=== PATIENT | female | born 1965 | race Caucasian/White ===

== ENCOUNTER 2017-01-06 05:32 | Observation (INO) | payer BC ==
[~2017-01-06] VITALS: Ht 170.2 cm; Wt 79.5 kg
[~2017-01-06 05:32] MED LIST: TOPI1TAB97 PO
[2017-01-06] MEDS ORDERED: HEPARIN SODIUM - SQ 10,000 UNITS/ML VIAL SQ SCH (06:00)
[2017-01-06] MEDS ORDERED: POVIDONE IODINE 5% (ANTISEPSIS KIT) 4 APPLICATIONS EACH NARE PRN (06:00)
[2017-01-06] MEDS ORDERED: SODIUM CHLORID 0.9% 500 ML IV PRN (06:00)
[2017-01-06] MEDS ORDERED: INSULIN HUMAN REGULAR 1,000 UNITS/10 ML VIAL SQ PRN (06:00)
[2017-01-06] MEDS ORDERED: LACTATED RINGER'S 1000 ML IV PRN (06:00)
[2017-01-06] MEDS ORDERED: ceFAZolin 1,000 MG/NS 100 ML IV SCH ×2 (06:00)
[2017-01-06] MEDS ORDERED: METOPROLOL TARTRATE 25 MG TAB PO PRN (06:00)
[2017-01-06] MEDS ORDERED: CHLORHEXIDINE GLUCONATE 2 % 1 PACK (2 CLOTHS) TOPICAL PRN (06:00)
[2017-01-06] MEDS ORDERED: HYDROmorphone HCL PF 2 MG/ML VIAL ONE (06:42)
[2017-01-06] MEDS ORDERED: ACETAMINOPHEN 1000 MG/100 ML 100 ML IV ONE (06:42)
[2017-01-06] MEDS ORDERED: FAMOTIDINE 20 MG/2 ML VIAL ONE (06:43)
[2017-01-06] MEDS ORDERED: SUGAMMADEX SODIUM 200 MG/2 ML VIAL IV PUSH ONE ×2 (06:43)
[2017-01-06] MEDS ORDERED: ARTIFICIAL TEARS OPTH OINT 3.5 APPLIC/3.5 GM TUBO ONE (06:43)
[2017-01-06] MEDS ORDERED: LIDOCAINE 1%/EPINEPHrine 1:100,000 SOLN 50 ML VIAL ONE (06:51)
[2017-01-06] MEDS ORDERED: ONDANSETRON HCL 4 MG/2 ML VIAL IVP PRN (10:00)
[2017-01-06] MEDS ORDERED: SODIUM CHLORIDE 0.9% FLUSH 10 ML FLUSH IV FLUSH PRN (10:00)
[2017-01-06] MEDS ORDERED: LORazepam 0.5 MG TAB PO PRN (10:00)
[2017-01-06] MEDS ORDERED: oxyCODONE/ACETAMINOPHEN 5 MG/325 MG TAB PO PRN ×2 (10:00)
[2017-01-06] MEDS ORDERED: diphenhydrAMINE HCL 25 MG CAP PO PRN (10:00)
[2017-01-06] MEDS: D5-1/2 NS + KCL 20 MEQ INJ 1,000 ML IV SCH ×2 (10:30→21:52)
[2017-01-06] MEDS ORDERED: DO NOT ADM ANY ANTICOAGULANT DRUGS PRN (10:30)
--- NOTE | 2017-01-06 11:39 | MP ---
cc: CEDRICK OSBORNE M.D., KELLY L. MD DATE OF SURGERY 01/06/2017 PREOPERATIVE DIAGNOSES 1. Left adnexal mass. 2. Postmenopausal bleeding. 3. Family history of ovarian cancer. POSTOPERATIVE DIAGNOSES 1. Left adnexal mass. 2. Postmenopausal bleeding. 3. Family history of ovarian cancer. PROCEDURE Robotic-assisted laparoscopic hysterectomy, bilateral salpingo-oophorectomy. 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 ANESTHESIA General endotracheal anesthesia. ESTIMATED BLOOD LOSS 50 cc IV FLUIDS 1400 cc URINE OUTPUT 450 cc HISTORY A 51-year-old female found on exam and imaging to have prominent, slightly complex left adnexal mass. She has also had some intermittent postmenopausal bleeding. Her tumor markers were at the upper limit of normal or slightly elevated and she has a family history of ovarian cancer. For the aforementioned reasons she has been counseled and is strongly in favor of surgical evaluation and management and she is in favor of complete hysterectomy, bilateral salpingo-oophorectomy to evaluate the abnormalities, treat her symptoms and to exclude and/or prevent the possibility of malignancy. She was seen again in the preop holding area where the findings were again reviewed. Questions were answered and she is still in favor of moving forward with the surgical plan as outlined. FINDINGS The uterine cavity sounds to 6.5 cm, slightly retroverted. The cervix and uterus grossly appeared normal. The right tube and ovary appears normal. Left ovary is prominent, approximately 4 cm with a smooth-walled cyst, slight complex appearance. In the peritoneal cavity there is no enlarged pelvic or para-aortic lymph nodes. The peritoneal surfaces were normal. The liver diaphragm edges were smooth. The mesentery of large and small bowel were all without peritoneal implants. Once removed the left ovary preliminary pathology showed a benign-appearing cystic change. The uterus was opened and the endometrium appeared homogeneous without any overt neoplastic change. PROCEDURE She was taken to the operating room, placed in dorsal lithotomy position. After general endotracheal anesthesia was administered time-out was undertaken. She was identified by sight recognition and hospital ID bracelet and the proposed procedure was reviewed and confirmed. She was carefully positioned in padded Rick stirrups. Her arms were padded and secured to the sides. She was further affixed with eggcrate padding and tape in across-chest, [id number] fashion. All sites noted to be properly aligned with no malalignments or pressure points. She was prepped and draped in sterile fashion, placed in lithotomy position. The cervix was grasped. The uterine cavity was sounded, the cervix dilated and initially a standard V-Care was selected but, due to the narrow introitus and some mucosal irritation, this was changed to a small V-Care which was fashioned and secured in the usual fashion. Smith catheter was placed in the bladder. She was returned to low lithotomy position. Change of sterile gloves was undertaken. We confirmed that an orogastric tube was in the stomach on suction. With manual elevation of the abdominal wall and direct laparoscopic visualization, a 5-mm cannula was introduced into the left upper quadrant. Carbon dioxide gas was insufflated. A 12-mm cannula was placed in the midline above the umbilicus and 8-mm cannulas were placed in the right upper quadrant and left lateral quadrant and the original 5-mm exchanged for an 8-mm cannula. She was placed in Trendelenburg position. Peritoneal washings were obtained for cytology. The anatomy was surveyed with findings as described above. The small bowel was folded back on its mesenteric root and three Ray-Jimmy sponges were placed around the root of the small bowel mesentery. The robotic system was brought into the operative field and attached in the usual fashion. Monopolar scissors, fenestrated bipolar forceps and ProGrasp manipulators were placed in arms #1, 2 and 3 respectively, then I took my place at the surgeon's console. The right round ligament was isolated, cauterized and transected. The anterior and posterior leaves of the broad ligament were opened. The right ureter was identified. The right infundibulopelvic ligament was isolated. The intervening peritoneum was opened. The infundibulopelvic ligament was isolated to the level of the pelvic brim where it was cauterized and transected. Posterior peritoneum dissected along the right side of the uterus and cervix and the right vesicouterine peritoneum dissected off the lower uterine segment and cervix. Right uterine vessels were skeletonized, cauterized and transected as were the cardinal, paracervical and uterosacral ligaments. Attention was directed toward the left side. Minor adhesions were taken down to mobilize the colon. The left round ligament was isolated, cauterized, transected. The anterior and posterior leaves of the broad ligament were opened. The left ureter was identified, the left infundibulopelvic ligament was isolated. The intervening peritoneum was opened. The infundibulopelvic ligament was isolated to the level of the pelvic brim where it was cauterized and transected. The posterior peritoneum was opened along the left side of the uterus and cervix and the left vesicouterine peritoneum was dissected off the lower uterine segment and cervix. The left uterine vessels were skeletonized, cauterized and transected as were the cardinal, paracervical and uterosacral ligaments. Colpotomy was performed the cervix from the upper vagina and the specimen was withdrawn transvaginally which included uterus, cervix, tubes and ovaries and a pneumooccluder balloon was placed in the vagina to maintain pneumoperitoneum. Instruments #1 and 3 were exchanged for needle drivers as 0 Vicryl suture was introduced. The vaginal cuff was closed starting at the left corner where full-thickness closure including the posterior peritoneum and edge of the uterosacral ligament were secured and tied via instrument tie. The closure was held on countertraction as a running continuous full-thickness closure was carried across the vaginal apex to the contralateral corner where it was similarly affixed, secured, tied and the needle was cut and removed. The pelvis was thoroughly irrigated. Small bleeders were rendered hemostatic with bipolar cautery. The integrity of the bladder was checked by visual inspection, the bladder wall intact. There was a good margin between the edge of the bladder and the vaginal cuff suture line, good peristalsis of ureters bilaterally, good hemostasis. Frozen section came back showing benign findings as described above. Therefore it was felt that all reasonable surgical objectives had been completed so the robotic instruments were removed. The robotic system was disengaged from the operative field and I reentered the bedside under sterile condition. Each of the three Ray-Jimmy sponges were removed through the 12-mm cannula. Each were inspected and noted to be removed in their entirety. Visual inspection confirmed no remaining foreign objects in the peritoneal cavity. Preliminary counts were correct. The 12-mm fascial defect was closed with 0 Vicryl suture using a needle pass apparatus. The sutures were tied securely which rendered the fascia completely airtight and hemostatic. The remaining cannulas were withdrawn. Carbon dioxide gas was removed. 3-0 Vicryl subcutaneous, 3-0 Vicryl subcuticular and Steri-Strips used to close these incisions. She was returned to dorsal lithotomy position. Pelvic exam confirmed the vaginal cuff was well-supported and hemostatic. There were no active bleeders but diffuse irritation to the mucosa with some mild oozing which was rendered hemostatic with 1 gram of Delmi hemostatic agent and silver nitrate at the introitus. There were no remaining foreign objects in the vagina. Final counts were correct. She was returned to dorsal supine position and was pending reversal of anesthesia when I left the operating room to precede her to the Post-Anesthesia Care Unit and to speak to family members who were waiting in the surgical waiting area. MD ODALYS Guillen/SSB /10:51 AM /11:08 AM
[2017-01-06 12:00] VITALS: BP 106/71; PULSE 68; RESP 18; TEMP 97.6; O2SAT 96
[2017-01-06 13:23] VITALS: BP 112/68; PULSE 79; RESP 18; TEMP 97.8; O2SAT 98
[2017-01-06] MEDS: HYDROmorphone HCL PF 1 MG/ML VIAL IVP PRN ×2 (13:32→21:51)
[2017-01-06] MEDS: KETOROLAC TROMETHAMINE 30 MG/ML (IVP) VIAL IVP SCH (15:12)
[2017-01-06 15:23] VITALS: BP 112/68; PULSE 79; RESP 18; TEMP 97.8; O2SAT 98
[2017-01-06 20:14] VITALS: BP 112/73; PULSE 79; RESP 18; TEMP 98.9; O2SAT 97
[2017-01-06] MEDS: SODIUM CHLORIDE 0.9% FLUSH 10 ML FLUSH IV FLUSH SCH (21:00)
[2017-01-07 00:32] VITALS: BP 99/65; PULSE 65; RESP 18; TEMP 98.9; O2SAT 95
[2017-01-07] MEDS: KETOROLAC TROMETHAMINE 30 MG/ML (IVP) VIAL IVP SCH ×3 (00:38→08:24)
[2017-01-07 05:12] VITALS: BP 117/66; PULSE 62; RESP 18; TEMP 98; O2SAT 98
[2017-01-07] MEDS ORDERED: OXYC1TAB63 PO (07:12)
[2017-01-07 07:58] LABS: AUTOMATED NEUTROPHIL # 8.8 TH/MM3 (1.8-7.7); BASOPHIL % 0.3 % (0.0-2.0); EOSINOPHIL % 0.2 % (0.0-4.0); HEMATOCRIT 36.2 % (35.0-46.0); HEMO FLAGS DIFF FINAL; LYMPH % 17.5 % (9.0-44.0); LYMPHOCYTE # 2.1 TH/MM3 (1.0-4.8); MEAN CELL VOLUME 93.6 FL (80.0-100.0); MEAN CORPUSCULAR HEMOGLOBIN 31.1 PG (27.0-34.0); MEAN CORPUSCULAR HGB CONC 33.2 % (32.0-36.0); MONO % 6.9 % (0.0-8.0); NEUT % 75.1 % (16.0-70.0); PLATELET COUNT 220 TH/MM3 (150-450); RED BLOOD COUNT 3.87 MIL/MM3 (4.00-5.30); RED CELL DISTRIBUTION WIDTH 12.2 % (11.6-17.2); WHITE BLOOD COUNT 11.8 TH/MM3 (4.0-11.0)
[2017-01-07 08:00] VITALS: BP 123/72; PULSE 77; RESP 16; TEMP 98.6; O2SAT 98
--- NOTE | 2017-01-07 08:03 | MD ---
cc: CEDRICK OSBORNE M.D., KELLY L. MD ADMISSION DATE: 01/06/2017 DISCHARGE DATE: 01/07/2017 [facility] Visit Search.Discharge Date PROCEDURE 01/06/2017: Robotic-assisted laparoscopic hysterectomy, bilateral salpingo-oophorectomy. DIAGNOSIS 1. Adnexal mass. 2. Postmenopausal bleeding. HOSPITAL COURSE She has done well in the early post-op period, hemodynamically stable. She is up walking around the cole this morning, Smith catheter removed, voiding okay, tolerating oral intake. In's and out's overnight 2940/3475. Labs pending at the time of this dictation. PHYSICAL EXAMINATION VITAL SIGNS: Today afebrile, pulse 62-79, respirations 18, blood pressure 99-117/65-73. O2 saturations greater than or equal to 95% while asleep, 98% while awake. GENERAL: She is alert and oriented x3, ambulating on the cole. LUNGS: Clear. CARDIOVASCULAR: Regular rate and rhythm. ABDOMEN: Incisions clean and dry. MANAGER BUSINESS MANAGEMENT: No bleeding. ASSESSMENT Post-op day #1, doing well in the early post-op period. Preliminary pathology and steps taken reviewed. Activities and restrictions discussed. Questions were answered. She expressed good understanding. PLAN Anticipate discharge to home today. She is to contact our office to schedule follow-up in 2 weeks. She is to resume her prior medications. She will have a prescription for Percocet for pain. She is to contact our office between now and the time of scheduled follow-up should she have any questions or problems. MD ODALYS Guillen/KRISTAL /7:13 AM /7:50 AM
[2017-01-07] MEDS: SODIUM CHLORIDE 0.9% FLUSH 10 ML FLUSH IV FLUSH SCH (08:24)
[2017-01-07 08:48] LABS: BICARBONATE 25.4 MEQ/L (21.0-32.0); POTASSIUM 3.4 MEQ/L (3.5-5.1)
[2017-01-07] MEDS ORDERED: TOPIRAMATE 25 MG TAB PO SCH (09:00)
== END 2017-01-07 09:34 | disposition home or self-care (01) ==
LOC: HSDC 05:32 → HSDI 09:58 → HCIS 11:19
PROVIDERS: ADMIT Obstetrics & Gynecology Gynecologic Oncology; ATTEND Obstetrics & Gynecology Gynecologic Oncology
DX: R19.09 Other intra-abdominal and pelvic swelling, mass and lump (principal); N95.0 Postmenopausal bleeding; D27.1 Benign neoplasm of left ovary; N72 Inflammatory disease of cervix uteri; Z80.41 Family history of malignant neoplasm of ovary
CPT/HCPCS: 00840; 58571; 80048; 85025; 86850; 86900; 86901; 88307; 88329; 94150; 96361; 96374; 96375; 96376; G0378; J0131; J0690; J1170; J1644; J1885; J3480; J7120; S2900; 88331